=== PATIENT | female | born 1935 | race African-American/Black ===

== ENCOUNTER 2022-11-16 14:10 | Observation (INO) | payer MEDICARE ==
[2022-11-16] MEDS ORDERED: Acetaminophen 325 MG TAB PO PRN (16:14)
[2022-11-16] MEDS ORDERED: Senokot S 8.6-50 MG TAB PO PRN (16:14)
[2022-11-16] MEDS ORDERED: Nitroglycerin 0.4 MG TAB (25 Tab Bottle) SL PRN (16:19)
[2022-11-16] MEDS ORDERED: HumaLOG 300 UNITS/3 ML VIAL SC PRN (16:19)
[2022-11-16] MEDS ORDERED: Dextrose 50% Abboject 50 ML SYRINGE SLOW IVP PRN (16:19)
[2022-11-16] MEDS ORDERED: Dextrose 5% in Water 1,000 ML IV PRN (16:19)
[2022-11-16] MEDS ORDERED: Sodium Chloride 0.9% 1,000 ML IV SCH (16:30)
[2022-11-16 17:38] LABS: Troponin I Less than 0.010 ng/mL (< 0.028)
[2022-11-16 17:43] VITALS: BMI 18.8
[2022-11-16 19:48] LABS: Troponin I Less than 0.010 ng/mL (< 0.028)
[2022-11-16 22:01] LABS: SARS-CoV-2 NAA Rapid Test Not Detected (NotDetected)
[2022-11-17 04:16] LABS: #Eosinphils 0.2 10x3/uL (0.0-0.5); #Monocytes 0.5 10x3/uL (0.0-1.1); #Neutrophils 2.7 10x3/uL (1.5-8.4); %Basophils 0.9 % (0.0-2.0); %Eosinophils 3.4 % (0.0-6.0); %Monocytes 10.8 % (0.0-10.0); %Neutrophils 61.7 % (40.0-75.0); Hemoglobin 10.5 g/dL (12.0-15.5); Mean Corpuscular HGB CONC 32.2 g/dL (32.0-36.0); Mean Corpuscular Hemoglobin 28.3 pg (27.0-33.0); Mean Corpuscular Volume 87.9 fl (81.6-98.3); Mean Platelet Volume 9.3 fl (7.4-10.4); Platelet Count 165 10x3/uL (150-450); RBC Distribution Width 14.2 % (11.5-14.5); Red Blood Cell (RBC) Count 3.71 10x6/uL (3.90-5.03); White Blood Cell (WBC) Count 4.4 10x3/uL (3.5-10.5)
[2022-11-17 04:25] LABS: Anion Gap 12 mmol/L (10-20); BUN (Urea Nitrogen) 27 mg/dL (9.8-20.1); Calc. Creatinine Clearance 23 mL/min (70-130); Calcium 8.4 mg/dL (7.8-10.44); Carbon Dioxide 19 mmol/L (23-31); Chloride 113 mmol/L (98-107); Estimated GFR 44; Glucose 149 mg/dL (83-110); Potassium 3.8 mmol/L (3.5-5.1); Sodium 140 mmol/L (136-145)
[2022-11-17] MEDS ORDERED: metFORMIN 500 MG TAB PO SCH (08:00)
[2022-11-17] MEDS ORDERED: Losartan 25 MG TAB PO SCH (09:00)
[2022-11-17] MEDS ORDERED: Clopidogrel Bisulfate 75 MG TAB PO SCH (09:00)
[2022-11-17] MEDS ORDERED: Atorvastatin Calcium 40 MG TAB PO SCH (09:00)
[2022-11-17] MEDS ORDERED: MEMANTINE HCL 14 MG PO SCH (09:00)
[2022-11-17] MEDS ORDERED: ALPRAZolam 0.25 MG TAB PO SCH (09:00)
[2022-11-17 23:48] VITALS: BP 117/56; TEMP 98.2
== END 2022-11-17 14:30 | disposition home or self-care (01) ==
LOC: CSHTELE 14:10 → INTOOBSV 14:10
PROVIDERS: ADMIT Internal Medicine; ATTEND Internal Medicine
DX: R07.2 Precordial pain (principal); R06.02 Shortness of breath; I25.10 Atherosclerotic heart disease of native coronary artery without angina pectoris; I25.2 Old myocardial infarction; E78.5 Hyperlipidemia, unspecified; Z20.822 Contact with and (suspected) exposure to COVID-19; I12.9 Hypertensive chronic kidney disease with stage 1 through stage 4 chronic kidney disease, or unspecified chronic kidney disease; E11.22 Type 2 diabetes mellitus with diabetic chronic kidney disease; N18.9 Chronic kidney disease, unspecified; N17.9 Acute kidney failure, unspecified; F03.90 Unspecified dementia, unspecified severity, without behavioral disturbance, psychotic disturbance, mood disturbance, and anxiety; K21.9 Gastro-esophageal reflux disease without esophagitis; Z79.84 Long term (current) use of oral hypoglycemic drugs; Z79.899 Other long term (current) drug therapy; Z79.01 Long term (current) use of anticoagulants; Z88.0 Allergy status to penicillin; Z95.5 Presence of coronary angioplasty implant and graft
CPT/HCPCS: 80048; 82962; 84484; 85025; 97116; G0378 ×2; U0002; 36415; 36416; J1815; J7050